=== PATIENT | female | born 1990 | race Caucasian/White ===

== ENCOUNTER 2017-03-04 10:08 | Emergency (ER) | payer MEDICAID ==
[2017-03-04 10:29] VITALS: BP 125/79
[2017-03-04] MEDS ORDERED: HYDROmorphone 1 MG/ML Syringe IM ONE (11:20)
[2017-03-04] MEDS ORDERED: Ondansetron 4 MG Tab.DIS ONE (11:42)
[2017-03-04] MEDS ORDERED: Ondansetron 4 MG Tab.DIS PO ONE ×2 (11:59→12:02)
--- NOTE | 2017-03-04 12:15 | EDM.PDOC ---
ED HPI Trauma - General Chief Complaint: Lower Extremity Injury/Pain Stated Complaint: RT KNEE PAIN Time Seen by Provider: 03/04/17 12:09 Source: Reports: Patient, Family, RN notes reviewed History Limitations: Reports: No limitations - History of Present Illness INITIAL COMMENTS - FREE TEXT/NARRATIVE: 26-year-old female presents to the emergency department a complaint right knee pain, this occurred 4 days prior when she had a twisting injury she has been ambulating on it but now the pain is so severe it's difficult for her to bear weight she has been using ibuprofen Allergies/ADRs: Allergies hydrocodone Adverse Reaction (Intermediate, Verified 07/20/16 08:14) Nausea cherries Allergy (Severe, Uncoded 07/20/16 08:14) Swollen Tongue fruits with pulp Allergy (Severe, Uncoded 07/20/16 08:14) Swollen Tongue Home Medications: Ambulatory Orders Norgestimate-Ethinyl Estradiol [Trinessa Tablet] 1 tab PO DAILY 07/20/16 [ Confirmed 07/20/16] Amphetamine/Dextroamphetamine [Adderall] 03/04/17 [Confirmed 03/04/17] Past Medical History Respiratory History: Reports: Asthma Gastrointestinal History: Reports: Cholelithiasis 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: Psychiatric History: Reports: ADD, Anxiety - Infectious Disease History Infectious Disease History: Reports: Chicken pox - Past Surgical History GI Surgical History: Reports: Cholecystectomy Female Surgical History: Reports: section Social & Family History - Family History Oncologic: Reports: Other (see below) Other Oncologic Family History: pt states history of cancer in family, not specified - Tobacco Use Smoking Status *Q: Never Smoker Years of Tobacco use: 1 Second Hand Smoke Exposure: No - Alcohol Use Days Per Week of Alcohol Use: 0 - Recreational Drug Use Recreational Drug Use: Yes Drug Use in Last 12 Months: Yes Recreational Drug Type: Reports: Marijuana/Hashish, Other (see below) Recreational Drug Use Frequency: Not Used In Over 6 Months Review of Systems - Review of Systems Review Of Systems: See Below Constitutional: Reports: no symptoms Musculoskeletal: Reports: joint pain (right knee pain) Trauma Exam - Physical Exam Exam: See Below Text/Narrative:: examination of the right knee is limited she will not tolerate any manipulation whatsoever I don't appreciate any erythema there is no edema noted skin Exam Limited By: No limitations General Appearance: Reports: alert, WD/WN, no apparent distress Course - Vital Signs Last Recorded V/S: Last Vital Signs Temp 99.6 F 03/04/17 10:55 Pulse 89 03/04/17 10:55 Resp 16 03/04/17 10:55 BP 125/79 03/04/17 10:55 Pulse Ox 96 03/04/17 10:55 - Orders/Labs/Meds Orders: Active Orders 24 hr Category Date Time Status Knee 3V Rt [CR] Stat Exams 03/04/17 11:18 Taken Meds: Medications Discontinued Medications Generic Name Dose Route Start Last Admin Trade Name Payam PRN Reason Stop Dose Admin Hydromorphone HCl 1 mg 03/04/17 11:20 03/04/17 11:25 Dilaudid IM 03/04/17 11:21 1 mg ONETIME ONE Administration Ondansetron HCl Confirm 03/04/17 11:42 Zofran Odt Administered 03/04/17 11:43 Dose 4 mg .ROUTE .STK-MED ONE Ondansetron HCl 4 mg 03/04/17 11:59 Zofran Odt PO 03/04/17 12:00 ONETIME ONE Ondansetron HCl 4 mg 03/04/17 12:02 Zofran Odt PO 03/04/17 12:03 ONETIME ONE Departure - Departure Time of Disposition: 12:13 Disposition: Home, Self-Care 01 Condition: good Clinical Impression: Right knee pain Qualifiers: Chronicity: acute Qualified Code(s): M25.561 - Pain in right knee Forms: ED Department Discharge Additional Instructions: please call the orthopedic clinic on Sunday for an appointment, continued to be nonweightbearing with crutches to use ibuprofen and Tylenol for Baseline pain control use tramadol for breakthrough pain call or return to the emergency department with worsening of symptoms - My Orders Last 24 Hours: My Active Orders 03/04/17 11:18 Knee 3V Rt [CR] Stat - Assessment/Plan Last 24 Hours: My Active Orders 03/04/17 11:18 Knee 3V Rt [CR] Stat Plan: Assessment Acuity = acute Site and laterality = right knee injury Etiology = twisting trauma Manifestations = pain Location of injury = Home Lab values = right knee I did review films myself I cannot appreciate any acute process, the official read from radiology is pending Plan she is placed in an Alexis wrap and crutches for nonweightbearing tramadol for pain control consult to orthopedics next Patient was in agreement with the plan all questions were answered, they were instructed to return to the emergency department or call for worsening symptoms. This note was dictated using TiVo voice recognition software please call with any questions.
--- NOTE | 2017-03-05 10:18 | CR ---
No fracture or dislocation.
== END 2017-03-04 12:38 | disposition home or self-care (01) ==
LOC: JP.ED 10:08
DX: M25.561 Pain in right knee (principal); F41.9 Anxiety disorder, unspecified; Z90.49 Acquired absence of other specified parts of digestive tract; Z98.890 Other specified postprocedural states; Z79.899 Other long term (current) drug therapy; Z88.5 Allergy status to narcotic agent; Z91.018 Allergy to other foods; W18.40XA Slipping, tripping and stumbling without falling, unspecified, initial encounter
CPT/HCPCS: 73562; 96372; 99284; A9270; J1170; 99283

== ENCOUNTER 2017-09-20 07:56 | Day surgery (SDC) | payer MEDICAID ==
[2017-09-20] MEDS ORDERED: Sodium Chloride 0.9% 1,000 ML IV SCH (08:30)
[2017-09-20] MEDS ORDERED: Propofol 200 MG/20 ML SDV ONE ×2 (09:51→10:52)
[2017-09-20] MEDS ORDERED: fentaNYL 100 MCG/2 ML SDV ONE (09:51)
[2017-09-20] MEDS ORDERED: Midazolam 1 MG/ML 2 ML SDV ONE (09:51)
[2017-09-20 11:20] VITALS: BP 109/66
--- NOTE | 2017-09-21 07:46 | PROC ---
DATE OF PROCEDURE: 09/20/2017 INDICATION: Alexandria is a 26-year-old female who has had a difficult time swallowing and significant abdominal pain. She often has trouble eating food and swallowing liquids. This has been a progressive problem recently. The risks and benefits were explained to her for an esophagogastroduodenoscopy with possible dilatation and/or biopsy. DESCRIPTION OF PROCEDURE: Anesthesia was given by the nurse window shade installer. During the procedure, we used 2 mg of Versed, 100 mcg of fentanyl, and 380 mg of propofol. The Olympus 180 scope was used, was placed into the pharynx with some difficulty and had to give significantly more anesthetic in order to get her to relax and get it through. We then advanced the scope, got into the esophagus, and advanced into the stomach. The pylorus was identified and advanced into the first and second part of the duodenum. Upon retraction of the tube, we noted significant duodenal erythema. The tube was brought back into the stomach, which revealed small ulcerations. Biopsy was done for Helicobacter pylori and pictures were taken. The remainder of the stomach was unremarkable, the greater and lesser curvature. The tube was retroflexed into the fundus, which revealed no abnormalities. Air was then withdrawn from the stomach. A Savary dilator guidewire was then placed through the scope and into the stomach, and the scope was slowly retracted. The wire was left in place. We were unable to see any esophageal stenosis that was evident. The tube was removed. The Savary dilator 60-Lao was used and placed over the guidewire and placed into the esophagus and into the stomach. The tube was left in place for 1 minute and then the dilator and the guidewire were removed. There was some blood noted on the dilator. The patient tolerated the procedure well. PREOPERATIVE DIAGNOSIS: Dysphagia and abdominal pain. POSTOPERATIVE DIAGNOSES: 1. Duodenal erythema. 2. Gastric ulcerations with biopsy pending for Helicobacter pylori, CLOtest. 3. Esophageal stenosis expected, but dilated to 60-Lao. I will see this lady in the office within a week. Checo Funes MD /[id number]
== END 2017-09-20 11:20 | disposition home or self-care (01) ==
LOC: JP.SDS 07:56
PROVIDERS: ATTEND Internal Medicine
DX: K25.9 Gastric ulcer, unspecified as acute or chronic, without hemorrhage or perforation (principal); K31.89 Other diseases of stomach and duodenum; F41.9 Anxiety disorder, unspecified; J45.909 Unspecified asthma, uncomplicated; Z88.8 Allergy status to other drugs, medicaments and biological substances; Z91.018 Allergy to other foods; Z90.49 Acquired absence of other specified parts of digestive tract; Z98.890 Other specified postprocedural states
CPT/HCPCS: 43239; 43248; 87081; J2250; J2704; J3010; J7040

== ENCOUNTER 2018-08-24 22:37 | Emergency (ER) | payer MEDICAID ==
[2018-08-24 23:14] VITALS: BP 113/80
[2018-08-24] MEDS ORDERED: hydrOXYzine HCl 25 MG Tab PO ONE (23:22)
--- NOTE | 2018-08-24 23:49 | EDM.PDOC ---
ED HPI GENERAL MEDICAL PROBLEM - General Chief Complaint: Skin Complaint Stated Complaint: RASH ON BODY Time Seen by Provider: 08/24/18 22:56 Source of Information: Reports: Patient History Limitations: Reports: No Limitations - History of Present Illness INITIAL COMMENTS - FREE TEXT/NARRATIVE: She complains of a rash for about 1 week and getting worse. To arms chest and extremities, everywhere but her back. Benadryl and oatmeal bath not helping. Nobody else in the household has any rash. No other contacts that she knows of. Could possibly be related to wearing a wool sweater. She has psoriasis but is certain this is unrelated. - Related Data Allergies Allergy/AdvReac Type Severity Reaction Status Date / Time acetaminophen Allergy Abdominal Verified 08/24/18 23:02 [From Tylenol-Codeine #3] Pain codeine Allergy Abdominal Verified 08/24/18 23:02 [From Tylenol-Codeine #3] Pain oxycodone Allergy Abdominal Verified 08/24/18 23:02 Pain hydrocodone AdvReac Intermediate Nausea Verified 08/24/18 23:02 cherries Allergy Severe Swollen Uncoded 08/24/18 23:02 Tongue fruits with pulp Allergy Severe Swollen Uncoded 08/24/18 23:02 Tongue Home Meds: Home Meds Norgestimate-Ethinyl Estradiol [Trinessa Tablet] 1 tab PO DAILY 07/20/16 [ History] Amphetamine/Dextroamphetamine [Adderall] 1 tab PO DAILY 03/04/17 [History] Zolpidem Tartrate 5 mg PO BEDTIME 09/18/17 [History] Past Medical History Respiratory History: Reports: Asthma Gastrointestinal History: Reports: Cholelithiasis, Gastritis, GERD Genitourinary History: Reports: None 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: Psychiatric History: Reports: ADD, Anxiety Dermatologic History: Reports: Eczema - Infectious Disease History Infectious Disease History: Reports: Chicken Pox - Past Surgical History Respiratory Surgical History: Reports: None GI Surgical History: Reports: Cholecystectomy Female Surgical History: Reports: Section Social & Family History - Family History Family Medical History: Noncontributory Oncologic: Reports: Other (See Below) Other Oncologic Family History: pt states history of cancer in family, not specified - Tobacco Use Smoking Status *Q: Never Smoker - Caffeine Use Caffeine Use: Reports: Coffee, Tea - Recreational Drug Use Recreational Drug Use: No ED ROS GENERAL - Review of Systems Review Of Systems: ROS reveals no pertinent complaints other than HPI. ED EXAM, SKIN/RASH Exam: See Below Exam Limited By: No Limitations General Appearance: Alert, WD/WN, Other (scratching various areas.) Eye Exam: Bilateral Eye: Normal Inspection Neck: Supple Respiratory/Chest: No Respiratory Distress Neurological: Alert, Oriented Skin: Other (Scabiaform rash to chest, neck and extremities, even between the fingers. She has scratched many of these areas. No macules. All just tiny excoriated papules. Nothing that looks vasculitic.) Course - Vital Signs Last Recorded V/S: Last Vital Signs Temp 36.2 C 08/24/18 23:00 Pulse 76 08/24/18 23:00 Resp 14 08/24/18 23:00 BP 113/80 08/24/18 23:00 Pulse Ox 98 08/24/18 23:00 - Orders/Labs/Meds Meds: Medications Discontinued Medications Generic Name Dose Route Start Last Admin Trade Name Payam PRN Reason Stop Dose Admin Hydroxyzine HCl 25 mg 08/24/18 23:22 08/24/18 23:33 Atarax PO 08/24/18 23:23 25 mg ONETIME ONE Administration - Re-Assessments/Exams Free Text/Narrative Re-Assessment/Exam: 08/25/18 06:53 Her history doesn't suggest scabies but her exam is highly suggestive. Departure - Departure Time of Disposition: 23:43 Disposition: Home, Self-Care 01 Condition: Fair Clinical Impression: Pruritic rash - Discharge Information Instructions: Pruritus Referrals: Gala Rasmussen PA [Primary Care Provider] - Forms: ED Department Discharge Additional Instructions: This rash looks suspiciously like Scabies although typically everyone in the household will have it. To treat it use the Elimite (Permethrin) cream as directed. Apply head to toe ( scalp optional but recommended) shower off after 12 hours. May need to repeat in 1 week. Animals can carry scabies too. Close contacts should consider treatment. Take prednisone 40 mg daily for 5 days. Use Hydroxyzine as directed instead of Benadryl. May cause sedation. See your doctor if no better in several days.
== END 2018-08-24 23:55 | disposition home or self-care (01) ==
LOC: JP.ED 22:37
DX: L29.9 Pruritus, unspecified (principal); F41.9 Anxiety disorder, unspecified; Z88.6 Allergy status to analgesic agent; Z91.018 Allergy to other foods
CPT/HCPCS: 99283; A9270

== ENCOUNTER 2020-01-01 17:44 | Emergency (ER) | payer MEDICAID ==
[2020-01-01 19:06] VITALS: BP 86/66; PULSE 98
[2020-01-01] MEDS ORDERED: Albuterol/Ipratropium 3.0-0.5 MG/3 ML Neb Soln NEB ONE (19:06)
--- NOTE | 2020-01-01 19:09 | EDM.PDOC ---
ED HPI GENERAL MEDICAL PROBLEM - General Chief Complaint: Respiratory Problem Stated Complaint: CHEST PAIN,COUGH,SOB Time Seen by Provider: 01/01/20 19:00 Source of Information: Reports: Patient History Limitations: Reports: No Limitations - History of Present Illness INITIAL COMMENTS - FREE TEXT/NARRATIVE: 29-year-old female with a history of asthma, has had a cough, shortness of breath, chest pressure, scratchy throat, runny nose for the past 2 days. Intermittent fevers. No nausea or vomiting. She is very anxious. Onset: Gradual Duration: Day(s): (2 days) Associated Symptoms: Reports: Chest Pain, Cough, Fever/Chills, Malaise, Shortness of Breath. Denies: Nausea/Vomiting Bilateral Chest Pain Score (Numeric/FACES): 8 - Related Data Allergies Allergy/AdvReac Type Severity Reaction Status Date / Time acetaminophen Allergy Abdominal Verified 01/01/20 18:55 [From Tylenol-Codeine #3] Pain codeine Allergy Abdominal Verified 01/01/20 18:55 [From Tylenol-Codeine #3] Pain oxycodone Allergy Abdominal Verified 01/01/20 18:55 Pain hydrocodone AdvReac Intermediate Nausea Verified 01/01/20 18:55 cherries Allergy Severe Swollen Uncoded 01/01/20 18:55 Tongue fruits with pulp Allergy Severe Swollen Uncoded 01/01/20 18:55 Tongue Home Meds: Home Meds Norgestimate-Ethinyl Estradiol [Trinessa Tablet] 1 tab PO DAILY 07/20/16 [ History] Amphetamine/Dextroamphetamine [Adderall] 1 tab PO DAILY 03/04/17 [History] Zolpidem Tartrate 5 mg PO BEDTIME 09/18/17 [History] Past Medical History Respiratory History: Reports: Asthma Gastrointestinal History: Reports: Cholelithiasis, Gastritis, GERD Genitourinary History: Reports: 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: Psychiatric History: Reports: ADD, Anxiety Dermatologic History: Reports: Eczema - Infectious Disease History Infectious Disease History: Reports: Chicken Pox - Past Surgical History Respiratory Surgical History: Reports: None GI Surgical History: Reports: Cholecystectomy Female Surgical History: Reports: Section Social & Family History - Family History Family Medical History: Noncontributory Oncologic: Reports: Other (See Below) Other Oncologic Family History: pt states history of cancer in family, not specified - Tobacco Use Smoking Status *Q: Former Smoker Used Tobacco, but Quit: Yes Month/Year Tobacco Last Used: quit years ago - Caffeine Use Caffeine Use: Reports: Coffee - Recreational Drug Use Recreational Drug Use: No ED ROS GENERAL - Review of Systems Review Of Systems: See Below Constitutional: Reports: Fever, Chills, Malaise HEENT: Reports: Rhinitis, Throat Pain Respiratory: Reports: Shortness of Breath, Wheezing, Cough. Denies: Sputum Cardiovascular: Reports: Chest Pain GI/Abdominal: Denies: Abdominal Pain, Nausea, Vomiting Skin: Reports: No Symptoms Neurological: Reports: Headache (Mild intermittent headache) Psychiatric: Reports: Anxiety ED EXAM, GENERAL - Physical Exam Exam: See Below Exam Limited By: No Limitations General Appearance: Alert, Anxious Ears: Normal TMs Nose: Clear Rhinorrhea Throat/Mouth: Normal Inspection Head: Atraumatic Neck: Supple Respiratory/Chest: No Respiratory Distress, Wheezing (Inspiratory and expiratory wheezes diffusely) Cardiovascular: Regular Rate, Rhythm. No: Tachycardia Neurological: Alert, Oriented Psychiatric: Anxious, Tearful Skin Exam: Warm, Dry Course - Vital Signs Last Recorded V/S: Last Vital Signs Temp 99.0 F 01/01/20 19:00 Pulse 98 01/01/20 19:00 Resp 18 01/01/20 19:00 BP 86/66 L 01/01/20 19:00 Pulse Ox 99 01/01/20 19:00 - Orders/Labs/Meds Orders: Active Orders 24 hr Category Date Time Status RT Aerosol Therapy [RC] ASDIRECTED Care 01/01/20 19:06 Active Chest 2V [CR] Routine Exams 01/01/20 19:06 Taken Labs: Laboratory Tests 01/01/20 Range/Units 19:18 Urine HCG, Qual Negative Meds: Medications Discontinued Medications Generic Name Dose Route Start Last Admin Trade Name Freq PRN Reason Stop Dose Admin Albuterol/Ipratropium 3 ml 01/01/20 19:06 01/01/20 19:12 Duoneb 3.0-0.5 Mg/3 Ml NEB 01/01/20 19:07 3 ml ONETIME ONE Administration - Re-Assessments/Exams Free Text/Narrative Re-Assessment/Exam: 01/01/20 19:09 A DuoNeb was given, followed by a two-view chest x-ray and influenza antigen testing. 01/01/20 19:39 Patient had marked objective and subjective improvement after the DuoNeb. Influenza antigen came back positive for influenza B. Urine was obtained to rule out before the chest x-ray. 01/01/20 20:05 Chest x-ray looks negative, urine was negative, influenza antigens were positive for influenza B. Patient was instructed on rest, fluids, symptom control and will return if worsening such as difficulty breathing. She will use her inhaler every 3-4 hours as needed. Departure - Departure Time of Disposition: 20:15 Disposition: Home, Self-Care 01 Clinical Impression: Influenza B - Discharge Information Instructions: Influenza, Adult Referrals: Gala Rasmussen PA [Primary Care Provider] - Forms: ED Department Discharge Care Plan Goals: Rest, fluids, cold medicines and ibuprofen or naproxen for headache and pain, and use your inhaler every 3-4 hours as needed. Return if worsening such as difficulty breathing despite using your inhaler. Wash hands frequently and use mask when around other people. Sepsis Event Note - Evaluation Sepsis Screening Result: No Definite Risk - Focused Exam Vital Signs: Vital Signs Temp Pulse Resp BP Pulse Ox 01/01/20 19:00 99.0 F 98 18 86/66 L 99 Date Exam was Performed: 01/01/20 Time Exam was Performed: 21:19 - My Orders Last 24 Hours: My Active Orders 01/01/20 19:06 RT Aerosol Therapy [RC] ASDIRECTED Chest 2V [CR] Routine - Assessment/Plan Last 24 Hours: My Active Orders 01/01/20 19:06 RT Aerosol Therapy [RC] ASDIRECTED Chest 2V [CR] Routine
--- NOTE | 2020-01-02 11:23 | CR ---
CHEST: 2 view CLINICAL HISTORY:Dyspnea COMPARISON:CT 2017 FINDINGS: The heart size, pulmonary vascular and hilar structures are normal. No infiltrate effusion or pneumothorax is seen. IMPRESSION: No acute cardiopulmonary process.
== END 2020-01-01 20:15 | disposition home or self-care (01) ==
LOC: JP.ED 17:44
DX: J10.1 Influenza due to other identified influenza virus with other respiratory manifestations (principal); F98.8 Other specified behavioral and emotional disorders with onset usually occurring in childhood and adolescence; Z88.6 Allergy status to analgesic agent; Z88.5 Allergy status to narcotic agent; Z91.018 Allergy to other foods; Z79.899 Other long term (current) drug therapy; Z87.891 Personal history of nicotine dependence
CPT/HCPCS: 71046; 71046-26; 81025; 87804; 87804-59; 94640; 99285-25; J7620-GY

== ENCOUNTER 2021-01-09 08:22 | Emergency (ER) | payer MEDICAID ==
[2021-01-09 08:37] VITALS: BP 116/76; PULSE 105
[2021-01-09] MEDS ORDERED: Ketorolac 60 MG/2 ML SDV IM ONE (08:37)
--- NOTE | 2021-01-09 08:44 | EDM.PDOC ---
ED HPI GENERAL MEDICAL PROBLEM - General Chief Complaint: Lower Extremity Injury/Pain Stated Complaint: FELL ON RIGHT KNEE Time Seen by Provider: 01/09/21 08:30 Source of Information: Reports: Patient, Old Records History Limitations: Reports: No Limitations - History of Present Illness INITIAL COMMENTS - FREE TEXT/NARRATIVE: 30 yo female was walking this morning outside and her R foot hit a chunk of ice and was abruptly stopped. This caused R knee pain that made her fall. The knee did not impact the ground. No tx prior to arrival. Has pain diffusely now to the anterior aspect of that knee. No hx of knee issues in the past. 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) (none) - Related Data Allergies Allergy/AdvReac Type Severity Reaction Status Date / Time acetaminophen Allergy Abdominal Verified 01/01/20 18:55 [From Tylenol-Codeine #3] Pain codeine Allergy Abdominal Verified 01/01/20 18:55 [From Tylenol-Codeine #3] Pain oxycodone Allergy Abdominal Verified 01/01/20 18:55 Pain hydrocodone AdvReac Intermediate Nausea Verified 01/01/20 18:55 cherries Allergy Severe Swollen Uncoded 01/01/20 18:55 Tongue fruits with pulp Allergy Severe Swollen Uncoded 01/01/20 18:55 Tongue Home Meds: Home Meds Norgestimate-Ethinyl Estradiol [Trinessa Tablet] 1 tab PO DAILY 07/20/16 [History] Amphetamine/Dextroamphetamine [Adderall] 1 tab PO DAILY 03/04/17 [History] Past Medical History Respiratory History: Reports: Asthma Gastrointestinal History: Reports: Cholelithiasis, Gastritis, GERD Genitourinary History: Reports: None 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: Psychiatric History: Reports: ADD, Anxiety Dermatologic History: Reports: Eczema - Infectious Disease History Infectious Disease History: Reports: Chicken Pox - Past Surgical History Respiratory Surgical History: Reports: None GI Surgical History: Reports: Cholecystectomy Female Surgical History: Reports: Section Social & Family History - Family History Family Medical History: No Pertinent Family History Oncologic: Reports: Other (See Below) Other Oncologic Family History: pt states history of cancer in family, not sp ecified - Caffeine Use Caffeine Use: Reports: Coffee Review of Systems - Review of Systems Review Of Systems: See Below Constitutional: Reports: No Symptoms Musculoskeletal: Reports: Joint Pain (R knee) Skin: Reports: No Symptoms Neurological: Reports: No Symptoms ED EXAM, GENERAL - Physical Exam Exam: See Below Exam Limited By: No Limitations General Appearance: Alert, WD/WN, No Apparent Distress Extremities: Normal Inspection, No Pedal Edema, Limited Range of Motion (due to pain. ), Other (tenderness diffusely to the upper half of the knee anteriorly. ). No: Normal Range of Motion, Non-Tender, Pedal Edema, Increased Warmth, Redness Neurological: Alert, Oriented, CN II-XII Intact, Normal Cognition, No Motor/Sensory Deficits Psychiatric: Normal Affect, Normal Mood Skin Exam: Warm, Dry, Intact, Normal Color, No Rash Course - Vital Signs Last Recorded V/S: Last Vital Signs Temp 37.1 C 01/09/21 08:35 Pulse 105 H 01/09/21 08:35 Resp 17 01/09/21 08:35 BP 116/76 01/09/21 08:35 Pulse Ox 98 01/09/21 08:35 - Orders/Labs/Meds Orders: Active Orders 24 hr Category Date Time Status Knee 3V Rt [CR] Stat Exams 01/09/21 08:37 Taken Meds: Medications Discontinued Medications Generic Name Dose Route Start Last Admin Trade Name Freq PRN Reason Stop Dose Admin Acetaminophen 1,000 mg 01/09/21 09:25 Tylenol Extra Strength PO 01/09/21 09:26 ONETIME ONE Ketorolac Tromethamine 60 mg 01/09/21 08:37 01/09/21 09:12 Toradol IM 01/09/21 08:38 60 mg ONETIME ONE Administration - Radiology Interpretation Free Text/Narrative:: R knee X-ray-neg - Re-Assessments/Exams Free Text/Narrative Re-Assessment/Exam: 01/09/21 09:29 No apparent ligamentous laxity on exam after X-ray review. 6 inch DILLON applied. Has crutches at home. Departure - Departure Time of Disposition: 09:40 Disposition: Home, Self-Care 01 Condition: Fair Clinical Impression: Right knee sprain Qualifiers: Encounter type: initial encounter Involved ligament of knee: unspecified ligament Qualified Code(s): S83.91XA - Sprain of unspecified site of right knee, initial encounter - Discharge Information *PRESCRIPTION DRUG MONITORING PROGRAM REVIEWED*: Not Applicable *COPY OF PRESCRIPTION DRUG MONITORING REPORT IN PATIENT FRENCH: Not Applicable Instructions: Knee Sprain, Adult, Peie-[id number] Referrals: PCP,None [Primary Care Provider] - Forms: ED Department Discharge Additional Instructions: Wear DILLON wrap except when resting during the day. Take acetaminophen up to 1000 mg every 6 hrs for pain relief. Add ibuprofen 600 mg every 6 hrs with food for added relief. Crutch walking with no weight bearing for a few days, then weight bearing as tolerated. If not able to bear full weight by a week from Sunday, then recheck with your provider as you may need a referral to orthopedics. Sepsis Event Note (ED) - Focused Exam Vital Signs: Vital Signs Temp Pulse Resp BP Pulse Ox 01/09/21 08:35 37.1 C 105 H 17 116/76 98 - My Orders Last 24 Hours: My Active Orders 01/09/21 08:37 Knee 3V Rt [CR] Stat - Assessment/Plan Last 24 Hours: My Active Orders 01/09/21 08:37 Knee 3V Rt [CR] Stat
[2021-01-09] MEDS ORDERED: Acetaminophen 500 MG Tab PO ONE (09:25)
--- NOTE | 2021-01-10 10:01 | CR ---
Knee 3V Rt CLINICAL HISTORY: Fall, pain FINDINGS: No acute fracture or dislocation is noted. There are no osseous lesions. Articular surfaces are smooth. Impression: Negative
== END 2021-01-09 10:10 | disposition home or self-care (01) ==
LOC: JP.ED 08:22
DX: S83.91XA Sprain of unspecified site of right knee, initial encounter (principal); J45.909 Unspecified asthma, uncomplicated; Z88.6 Allergy status to analgesic agent; Z88.5 Allergy status to narcotic agent; Z91.018 Allergy to other foods; W22.8XXA Striking against or struck by other objects, initial encounter; Y93.01 Activity, walking, marching and hiking
CPT/HCPCS: 73562; 96372; 99283; J1885

== ENCOUNTER 2021-07-17 10:36 | Emergency (ER) | payer MEDICAID ==
[2021-07-17 10:57] VITALS: BP 130/86; PULSE 101
--- NOTE | 2021-07-17 11:16 | EDM.PDOC ---
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 Ankle gave out and she had pain. She has iced and used [id number] remedies to reduce swelling and pain without success. She has had the last week off from work. She is scheduled to go to work tomorrow. She wants to make sure that the ankle is stable for her to work on. She states she has difficulty with range of motion. Ankle has obvious swelling compared to right ankle. Onset: Sudden Onset Date: 07/10/21 Duration: Constant Location: Reports: Lower Extremity, Left (Ankle) Quality: Reports: Ache Severity: Moderate Improves with: Reports: None Worsens with: Reports: Other (Weightbearing), Movement Context: Reports: Trauma Associated Symptoms: Reports: No Other Symptoms - Related Data Allergies Allergy/AdvReac Type Severity Reaction Status Date / Time acetaminophen Allergy Abdominal Verified 07/17/21 10:59 [From Tylenol-Codeine #3] Pain codeine Allergy Abdominal Verified 07/17/21 10:59 [From Tylenol-Codeine #3] Pain oxycodone Allergy Abdominal Verified 07/17/21 10:59 Pain hydrocodone AdvReac Intermediate Nausea Verified 07/17/21 10:59 cherries Allergy Severe Swollen Uncoded 07/17/21 10:59 Tongue fruits with pulp Allergy Severe Swollen Uncoded 07/17/21 10:59 Tongue Home Meds: Home Meds Norgestimate-Ethinyl Estradiol [Trinessa Tablet] 1 tab PO DAILY 07/20/16 [History] Amphetamine/Dextroamphetamine [Adderall] 1 tab PO DAILY 03/04/17 [History] Past Medical History Respiratory History: Reports: Asthma Gastrointestinal History: Reports: Cholelithiasis, Gastritis, GERD Genitourinary History: Reports: None [employer] DIRECTOR History: Reports: Psychiatric History: Reports: ADD, Anxiety Dermatologic History: Reports: Eczema - Infectious Disease History Infectious Disease History: Reports: Chicken Pox - Past Surgical History Respiratory Surgical History: Reports: None GI Surgical History: Reports: Cholecystectomy Female Surgical History: Reports: Section Social & Family History - Family History Family Medical History: No Pertinent Family History Oncologic: Reports: Other (See Below) Other Oncologic Family History: pt states history of cancer in family, not specified - Tobacco Use Tobacco Use Status *Q: Never Tobacco User - Caffeine Use Caffeine Use: Reports: Coffee Review of Systems - Review of Systems Review Of Systems: See Below Constitutional: Reports: No Symptoms Musculoskeletal: Reports: Joint Pain (Left ankle), Joint Swelling (Left ankle) Skin: Reports: No Symptoms Neurological: Reports: No Symptoms Psychiatric: Reports: No Symptoms ED EXAM, GENERAL - Physical Exam Exam: See Below Free Text/Narrative:: Patient with obvious swelling left lateral ankle. Limited range of motion and significant tenderness with palpation. No bruising. Exam Limited By: No Limitations General Appearance: Alert, WD/WN, No Apparent Distress Peripheral Pulses: 2+: Dorsalis Pedis (L), Dorsalis Pedis (R) Extremities: No Pedal Edema, Normal Capillary Refill, Joint Swelling (Left ank le), Limited Range of Motion (Left ankle). No: Normal Range of Motion, Increased Warmth, Redness Neurological: Alert, Oriented, CN II-XII Intact, Normal Cognition Psychiatric: Normal Affect Skin Exam: Warm, Dry, Intact, Normal Color Course - Vital Signs Last Recorded V/S: Last Vital Signs Temp 36.6 C 07/17/21 11:01 Pulse 101 H 07/17/21 11:01 Resp 16 07/17/21 11:01 BP 130/86 07/17/21 11:01 Pulse Ox 98 07/17/21 11:01 - Orders/Labs/Meds Orders: Active Orders 24 hr Category Date Time Status Ankle Min 3V Lt [CR] Stat Exams 07/17/21 11:05 Taken Review of ankle no fracture, no dislocation no malalignment appreciated. We will wait for final radiology read. In the meantime we will place patient in a stirrup brace and have patient follow-up with primary care this following week if she does not notice improvement. Instructed patient in Tylenol and ibuprofen for pain. She may also use diclofenac, Aspercreme or other topical for pain relief and swelling. Encourage rest ice compression and elevation as much as possible. Patient may continue to walk on it as she has for this previous week. Departure - Departure Time of Disposition: 12:17 Disposition: Home, Self-Care 01 Condition: Fair Clinical Impression: Contusion of ankle or foot, left - Discharge Information *PRESCRIPTION DRUG MONITORING PROGRAM REVIEWED*: Not Applicable *COPY OF PRESCRIPTION DRUG MONITORING REPORT IN PATIENT FRENCH: Not Applicable Instructions: Ankle Sprain, [id number] Referrals: Gala Rasmussen PA [Primary Care Provider] - Forms: ED Department Discharge Additional Instructions: Follow-up with primary care provider in the next week. Wear brace when up and walking for support. [id number] pain relief/anti-inflammatories both topical and or oral per package directions. Sepsis Event Note (ED) - Evaluation Sepsis Screening Result: No Definite Risk - Focused Exam Vital Signs: Vital Signs Temp Pulse Resp BP Pulse Ox 07/17/21 11:01 36.6 C 101 H 16 130/86 98 07/17/21 10:56 36.6 C 101 H 16 130/86 98 - My Orders Last 24 Hours: My Active Orders 07/17/21 11:05 Ankle Min 3V Lt [CR] Stat - Assessment/Plan Last 24 Hours: My Active Orders 07/17/21 11:05 Ankle Min 3V Lt [CR] Stat Assessment:: Left ankle contusion Plan: Patient placed in stirrup brace. Recommended [id number] topical and/or oral analgesics/anti-inflammatory. Rest ice compression and elevation as able. Patient is not limited to weightbearing. She should let pain be her guide.
--- NOTE | 2021-07-18 09:37 | CR ---
Ankle Min 3V Lt CLINICAL HISTORY: Injury FINDINGS: The soft tissues are swollen laterally. No acute fracture or dislocation is noted. Ankle mortise is intact. Articular surfaces are smooth. Impression: Soft tissue swelling No fracture
== END 2021-07-17 12:10 | disposition home or self-care (01) ==
LOC: JP.ED 10:36
DX: S90.02XA Contusion of left ankle, initial encounter (principal); Z88.6 Allergy status to analgesic agent; Z88.5 Allergy status to narcotic agent; Z91.018 Allergy to other foods; Z79.899 Other long term (current) drug therapy; W18.42XA Slipping, tripping and stumbling without falling due to stepping into hole or opening, initial encounter
CPT/HCPCS: 73610-26-LT; 73610-LT; 99283-25

== ENCOUNTER 2022-01-22 08:53 | Emergency (ER) | payer MEDICAID ==
[2022-01-22 09:04] VITALS: BP 123/69; PULSE 96
[2022-01-22] MEDS ORDERED: Albuterol/Ipratropium 3.0-0.5 MG/3 ML Neb Soln NEB ONE (09:09)
[2022-01-22] MEDS ORDERED: Albuterol/Ipratropium 3.0-0.5 MG/3 ML Neb Soln ONE (09:11)
[2022-01-22] MEDS ORDERED: Albuterol 8 GM Inhaler INH ONE (09:27)
== END 2022-01-22 09:42 | disposition home or self-care (01) ==
LOC: JP.ED 08:53
DX: J45.41 Moderate persistent asthma with (acute) exacerbation (principal); Z88.5 Allergy status to narcotic agent; Z91.018 Allergy to other foods
CPT/HCPCS: 94640; 99282; 99284-25; A9270-GY; J7620-GY

== ENCOUNTER 2022-06-18 04:14 | Emergency (ER) | payer MEDICAID ==
[2022-06-18 04:24] VITALS: BP 126/96; PULSE 110
[2022-06-18] MEDS ORDERED: Lidocaine 2% Viscous Solution 15 ML UD PO ONE (04:36)
== END 2022-06-18 05:02 | disposition home or self-care (01) ==
LOC: JP.ED 04:14
DX: K12.0 Recurrent oral aphthae (principal); B08.5 Enteroviral vesicular pharyngitis; F17.210 Nicotine dependence, cigarettes, uncomplicated; Z88.5 Allergy status to narcotic agent; Z91.018 Allergy to other foods; Z88.8 Allergy status to other drugs, medicaments and biological substances
CPT/HCPCS: 99282; A9270; 99281

== ENCOUNTER 2022-10-11 16:39 | Emergency (ER) | payer MEDICAID ==
[2022-10-11 16:58] VITALS: BP 121/81; PULSE 100
== END 2022-10-11 17:33 | disposition home or self-care (01) ==
LOC: JP.ED 16:39
DX: O20.9 Hemorrhage in early pregnancy, unspecified (principal)
CPT/HCPCS: 36415; 80048; 84702; 85025; 99284